=== PATIENT | female | born 1960 | race Caucasian/White ===

== ENCOUNTER 2017-12-20 16:00 | Emergency (ER) | payer OTHER ==
--- NOTE | 2017-12-20 16:26 | Emergency Department Record ---
History of Present Illness - General Chief Complaint: Difficulty Breathing Stated Complaint: SOB Time Seen by Provider: 12/20/17 16:18 Source: Patient, Family Mode of Arrival: Ambulatory Limitations: No limitations - History of Present Illness Initial Comments: 57 yo female presents with a cough today. She has been dealing with a recent sinus infection that has been treated by and ENT in [place]. She has post nasal drip that seems to cause irritation in the throat. The cough today feels productive with a feeling of mucus rattling around. No fevers. She is on Medrol and Augmentin. She reports a lifelong history of asthma but no flare ups in about 2 years. No chest pain. No leg pain or edema. MD Complaint: Cough Onset/Timin -: Week(s) Severity: Moderate Severity scale (1-10): 5 Improves With: Nothing Worsens With: Nothing Associated Symptoms: Cough Treatments Prior to Arrival: Bronchodilator, Other Treatment Prior to Arrival Comment:: Klonopin - Related Data Home Medications Medication Instructions Recorded Confirmed Last Taken Albuterol Sulfate [Proair Hfa] 1 - 2 puff IH .EVERY 4-6 HOURS PRN 12/20/1712/20 1 Day Ago ~12/19/17 Amoxicillin/Potassium Clav 1 tab PO BID 12/20/17 12/20/17 1 Day Ago [Augmentin 875-125 Tablet] ~12/19/17 Clonazepam [Klonopin] 1 mg PO Q12H PRN 12/20/17 12/20/17 1 Day Ago ~12/19/17 Methylprednisolone [Medrol Dose 4 mg PO DAILY 12/20/17 12/20/17 1 Day Ago Pack] ~12/19/17 Previous Rx's Medication Instructions Recorded Benzonatate [Tessalon] 1 cap PO Q8H PRN #25 cap 12/20/17 Allergies Allergy/AdvReac Type Severity Reaction Status Date / Time doxycycline Allergy RASH Verified 12/20/17 16:12 Sulfa (Sulfonamide Allergy RASH Verified 12/20/17 16:12 Antibiotics) Travel Screening - Travel/Exposure Within Last 30 Days Have you traveled within the last 30 days?: No - Travel/Exposure Within Last Year Have you traveled outside the [place] in the last year?: No - Additonal Travel Details Have you been exposed to anyone with a communicable illness?: No - Travel Symptoms Symptom Screening: None Review of Systems Constitutional: Denies: Chills, Fever, Malaise, Weakness Eyes: Denies: Eye discharge, Eye pain, Photophobia, Vision change ENT: Reports: Congestion. Denies: Ear pain, Epistaxis, Throat pain Respiratory: Reports: Cough. Denies: Dyspnea, Hemoptysis, Stridor, Wheezes Cardiovascular: Denies: Chest pain, Palpitations, Syncope Endocrine: Denies: Fatigue, Polydipsia, Polyuria Gastrointestinal: Denies: Abdominal pain, Diarrhea, Nausea Genitourinary: Denies: Dysuria, Urgency Musculoskeletal: Denies: Arthralgia, Back pain, Joint swelling, Myalgia Skin: Denies: Bruising, Change in color, Rash Neurological: Denies: Headache, Numbness, Weakness Psychiatric: Denies: Anxiety Hematological/Lymphatic: Denies: Blood Clots, Easy bleeding, Easy bruising, Swollen glands Past Medical History - SOCIAL HISTORY Smoking Status: Never smoker Alcohol Use: None Drug Use: None - RESPIRATORY Hx Respiratory Disorders: Yes Hx Asthma: Yes - CARDIOVASCULAR Hx Cardio Disorders: No Comment:: Stress test last year - NEURO Hx Neuro Disorders: Yes Hx Headaches: Yes - GI Hx GI Disorders: Yes Comment:: peritonitis - Hx Genitourinary Disorders: Yes Hx Bladder Problem: Yes Hx Kidney Stones: Yes - ENDOCRINE Hx Endocrine Disorders: Yes Hx Thyroid Disease: Yes (hypo) - MUSCULOSKELETAL Hx Musculoskeletal Disorders: No - PSYCH Hx Psych Problems: Yes Hx Anxiety: Yes - HEMATOLOGY/ONCOLOGY Hx Hematology/Oncology Disorders: No Family Medical History Any Significant Family History?: Yes Hx Cancer: Father, Mother Hx Diabetes: Brother/Sister Physical Exam - General General Appearance: Alert, Oriented x3, Cooperative, No acute distress Limitations: No limitations - Head Head exam: Normal inspection - Eye Eye exam: Normal appearance, PERRL. negative: Conjunctival injection, Scleral icterus - ENT ENT exam: Normal exam Ear exam: Normal external inspection Nasal Exam: Normal inspection Mouth exam: Normal external inspection - Neck Neck exam: Normal inspection, Full ROM. negative: Lymphadenopathy, Tenderness - Respiratory Respiratory exam: Normal lung sounds bilaterally, Other (Clear lungs). negative : Accessory muscle use, Chest wall tenderness, Decreased breath sounds, Prolonged expiratory, Rales, Respiratory distress, Rhonchi, Stridor, Wheezes - Cardiovascular Cardiovascular Exam: Regular rate, Normal rhythm, Normal heart sounds Peripheral Pulses: 2+: Radial (R), Radial (L) - GI/Abdominal GI/Abdominal exam: Soft. negative: Tenderness - Rectal Rectal exam: Deferred - exam: Deferred - Extremities Extremities exam: Normal inspection, Full ROM, Normal capillary refill. negative: Tenderness - Back Back exam: Denies: CVA tenderness (R), CVA tenderness (L) - Neurological Neurological exam: Alert - Psychiatric Psychiatric exam: Normal affect, Normal mood - Skin Skin exam: Dry, Intact, Normal color, Warm Course Vital Signs 12/20/17 16:04 Temperature 97.9 F Pulse Rate 98 H Respiratory 34 H Rate Blood Pressure 135/74 Pulse Ox 99 - Reevaluation(s) Reevaluation #1: 12/20/17 16:36 RT worked extensively with the patient with her cough She has clear lungs, no conversational dyspnea, able to speak for long periods of time without limitations or fatigue. The nasal sinuses are somewhat edematous, no pus, clear drainage. 12/20/17 16:56 The labs were reviewed. No acute changes The patient returned from radiology. No cough at this time. She is very conversational and comfortable. 12/20/17 16:57 The CXR was reviewed. No acute infiltrate Repeat vitals normal Medical Decision Making - Lab Data Result diagrams: 12/20/17 16:25 12/20/17 16:25 Disposition Disposition: Discharge Clinical Impression: Sinusitis, Hypokalemia Disposition: Home, Self-Care Condition: (1) Good Instructions: Sinusitis (ED), Hypokalemia (ED) Additional Instructions: Call your PCP and ENT first of the week Be seen if worse, fever, worsening cough or any new concerns. Stay well hydrated and eat potassium rich foods. Prescriptions: Benzonatate [Tessalon] 1 cap PO Q8H PRN #25 cap PRN Reason: Cough Forms: Patient Portal Access Time of Disposition: 17:04 Quality - Quality Measures Quality Measures: N/A - Blood Pressure Screening Does Patient Have Any of the Following: No Blood Pressure Classification: Pre-Hypertensive BP Reading Systolic Measurement: 135 Diastolic Measurement: 74 Screening for High Blood Pressure: < Pre-Hypertensive BP, F/U Documented > [ [id number]] Pre-Hypertensive Follow-up Interventions: Referral to alternative/primary care provider.
[2017-12-20 16:30] LABS: BASO % 0.2 % (0-6); GRAN % 69.1 % (47-80); HEMATOCRIT 40.2 % (35.0-47.0); HEMOGLOBIN 13.8 gm/dl (11.6-16.0); LYMPH % 16.4 % (16-45); MEAN CELL VOLUME 86.3 fl (81-97); MEAN CORPUSCULAR HEMOGLOBIN 29.6 pg (27-33); MEAN CORPUSCULAR HGB CONC 34.3 g/dl (32-36); MEAN PLATELET VOLUME 8.9 fl (7.4-10.4); MONO % 14.3 % (0-9); PLATELET COUNT 258 K/uL (130-400); RED BLOOD COUNT 4.66 M/uL (3.80-5.40); WHITE BLOOD COUNT W/O DIFF 5.9 K/uL (4.2-12.2)
[2017-12-20 16:45] LABS: BLOOD UREA NITROGEN 17 mg/dL (6-20); CREATININE 0.5 mg/dL (0.5-0.9); EST GLOMERULAR FILTRATION RATE > 60 mL/min
[2017-12-20 16:46] LABS: TOTAL PROTEIN 6.8 g/dL (6.6-8.7)
[2017-12-20 16:48] LABS: GLUCOSE,RANDOM 133 mg/dL (74-109)
[2017-12-20 16:51] LABS: ALB/GLOB RATIO 1.8 (1.1-1.8); ALBUMIN 4.4 g/dL (4.0-5.0); ALKALINE PHOSPHATASE 80 U/L (35-104); ALT/SGPT 15 U/L (<33); AST/SGOT 18 U/L (10.0-35.0)
[2017-12-20] MEDS ORDERED: POTASSIUM CHLORIDE 20 MEQ TABLET PO ONE (17:08)
--- NOTE | 2017-12-21 23:06 | RADIOLOGY REPORT ---
EXAM: CHEST 2 VIEWS HISTORY: COUGH. TECHNIQUE: Frontal and lateral views of the chest. COMPARISON: 12/16/14 chest. FINDINGS: Heart size is normal. The lungs are clear. No pneumothorax. IMPRESSION: NEGATIVE CHEST. JOB NUMBER: [id number] MTDD
== END 2017-12-20 17:24 | disposition home or self-care (01) ==
LOC: ER 16:00
DX: J01.90 Acute sinusitis, unspecified (principal); E87.6 Hypokalemia; R05 Cough; R06.00 Dyspnea, unspecified
CPT/HCPCS: 71046; 80053; 85025; 94664; 99283; 99284